=== PATIENT | female | born 1945 | race Caucasian/White ===

== ENCOUNTER → 2018-04-11 | Outpatient (CLI) | payer MEDICARE, OTHER ==
[~2018-04-11] MED LIST: AMLODIPINE BESYL5 MG PO; AZOR 5-20 MG T1 EACH PO; CLOPIDOGREL75 MG PO; COSOPT PF EYE1 EACH OU; IOPAMIDOL 370 MG/ML 200 ML INFUS..BTL INJ ONE; LIPITOR20 MG PO; LOSARTAN POTAS100 MG PO; LUMIGAN2.5 M1 OU; SODIUM CHLORIDE 0.9% 50ML 50 ML ONE; ZIAC 5-6.25 MG1 EACH PO
[2018-04-11 16:27] LABS: BLOOD UREA NITROGEN 18 mg/dL (7-26); BUN/CREATININE RATIO 21 (6-25); CREATININE, SERUM 0.86 mg/dL (0.57-1.11); EST GLOMERULAR FILTRATION RATE > 60 ML/MIN (60-)
--- NOTE | 2018-04-11 18:11 | Diagnostic Imaging Report ---
EXAM: CT Abdomen and Pelvis WITH contrast INDICATION: Abdominal pain. Weight loss. COMPARISON: None. TECHNIQUE: Abdomen and pelvis were scanned utilizing a multidetector helical scanner from the lung base to the pubic symphysis after administration of IV contrast. Coronal and sagittal reformations were obtained. Routine protocol was performed. Scan was performed when during portal venous phase. IV CONTRAST: 100 cc [id number] ORAL CONTRAST: Water RADIATION DOSE: Total DLP: 599.45 mGy*cm Estimated effective dose: (DLP x 0.015 x size factor) mSv COMPLICATIONS: None FINDINGS: LINES and TUBES: None. LOWER THORAX: Unremarkable HEPATOBILIARY: No focal hepatic lesions. No biliary ductal dilation. GALLBLADDER: No radio-opaque stones or sludge. No wall thickening. SPLEEN: No splenomegaly. PANCREAS: No focal masses or ductal dilatation. ADRENALS: No adrenal nodules KIDNEYS/URETERS: Kidneys enhance symmetrically. No hydronephrosis. 6 mm low-attenuation lesion in the upper pole of the left kidney on image 13 series 2 is too small to be characterized; it represent a small cyst. No stones. GI TRACT: No abnormal distention, wall thickening, or evidence of bowel obstruction. Appendix is normal. There are a few scattered sigmoid diverticula without diverticulitis. PELVIC ORGANS/BLADDER: The uterus is retroverted. Urinary bladder is unremarkable. LYMPH NODES: No lymphadenopathy. VESSELS: Mild focal ectasia of the abdominal aorta just proximal to the bifurcation, measuring 2.3 cm on image 33 series 2. Atherosclerotic plaque throughout the abdominal aorta including the origin of major branches which demonstrate varying degrees of stenosis. PERITONEUM / RETROPERITONEUM: No free air or fluid. BONES: Slight grade 1 anterolisthesis of L4 in relation to L5 without spondylolysis. Bilateral facet arthrosis at L4-L5 and L5-S1. Left-sided L5-S1 pseudoarthrosis. SOFT TISSUES: Unremarkable. IMPRESSION: 1. Mild sigmoid diverticulosis without diverticulitis. 2. Extensive atherosclerotic disease throughout the abdominal aorta and iliac arteries and major branches. Mild focal ectasia of the infrarenal abdominal aorta measuring 2.3 cm in maximal dimension. Signed by: Dr. Catarina Ch M.D. on 04/11/2018 6:04 PM
== END | disposition home or self-care (01) ==
LOC: CT 15:43
PROVIDERS: ATTEND Internal Medicine Gastroenterology
DX: R10.9 Unspecified abdominal pain (principal); R63.4 Abnormal weight loss; R19.7 Diarrhea, unspecified; K57.30 Diverticulosis of large intestine without perforation or abscess without bleeding; I70.0 Atherosclerosis of aorta; I77.811 Abdominal aortic ectasia
CPT/HCPCS: 36415; 74177; 82565; 84520; Q9967